=== PATIENT | female | born 1980 | race Two or more races ===

== ENCOUNTER 2019-06-17 00:35 | Emergency (ER) | payer SELFPAY ==
[~2019-06-17] VITALS: Ht 134.6 cm; Wt 49.0 kg
[2019-06-17] MEDS ORDERED: ACETAMINOPHEN 325MG TABLET PO STA (03:48)
[2019-06-17] MEDS ORDERED: KETOROLAC 60MG/2ML VIAL IM STA (05:37)
[2019-06-17 05:48] LABS: HCG SCREEN NEGATIVE
[2019-06-17 06:14] VITALS: BP 121/75
== END 2019-06-17 06:16 | disposition home or self-care (01) ==
LOC: ER 00:35
DX: S16.1XXA Strain of muscle, fascia and tendon at neck level, initial encounter (principal); S00.93XA Contusion of unspecified part of head, initial encounter; V89.2XXA Person injured in unspecified motor-vehicle accident, traffic, initial encounter; Y93.89 Activity, other specified; Y92.89 Other specified places as the place of occurrence of the external cause; Y99.8 Other external cause status
CPT/HCPCS: 72125; 84703; 96372; 99284; J1885